=== PATIENT | male | born 1960 | race Caucasian/White ===

== ENCOUNTER 2019-01-05 19:47 | Observation (INO) | payer OTHER ==
[~2019-01-05] VITALS: Ht 182.9 cm; Wt 100.0 kg
[2019-01-05 20:20] LABS: BASOPHILS ABSOLUTE AUTO 0.05 K/mm3 (0.00-0.23); BASOPHILS PERCENT AUTO 1 % (0-2); EOSINOPHILS ABSOLUTE AUTO 0.03 K/mm3 (0.00-0.68); EOSINOPHILS PERCENT AUTO 0 % (0-6); Hematocrit 38.1 % (37.0-53.0); IMMATURE GRAN ABSOLUTE AUTO 0.04 K/mm3 (0.00-0.10); IMMATURE GRAN PERCENT AUTO 0 % (0-1); LYMPHOCYTES ABSOLUTE AUTO 0.91 K/mm3 (0.84-5.20); LYMPHOCYTES PERCENT AUTO 10 % (21-46); MONOCYTES ABSOLUTE AUTO 0.77 K/mm3 (0.16-1.47); MONOCYTES PERCENT AUTO 8 % (4-13); Mean Corpuscular HGB 34.7 pg (26.0-34.0); Mean Corpuscular HGB Conc 34.1 g/dL (31.5-36.5); Mean Corpuscular Volume 102 fL (80-100); Mean Platelet Volume 10.1 fL (9.1-12.4); NEUTROPHILS ABSOLUTE AUTO 7.71 K/mm3 (1.96-9.15); NEUTROPHILS PERCENT AUTO 81 % (41-73); Platelet Count 225 K/mm3 (150-400); RDW Coefficient Variation 12.3 % (11.7-14.2); RDW Standard Deviation 46.4 fL (35.1-46.3); Red Blood Cell Count 3.75 M/mm3 (4.30-5.90); White Blood Cell Count 9.51 K/mm3 (4.00-11.30)
[2019-01-05 21:19] LABS: Magnesium, Blood 1.6 mg/dL (1.6-2.4)
[2019-01-05 21:20] LABS: Alanine Aminotransfer (ALT/SGP 115 U/L (12-78); Albumin, Blood 4.3 g/dL (3.4-5.0); Albumin/Globulin Ratio 1.3 (0.8-1.8); Alk Phos 99 U/L (50-136); Anion Gap 9 mmol/L (6-16); Aspartate Aminotrans (AST/SGOT 115 U/L (12-37); Bilirubin, Total 0.8 mg/dL (0.1-1.0); Blood Urea Nitrogen 12 mg/dL (8-24); Bun/Creatinine Ratio 10.2 (12.0-20.0); CO2, Blood 25 mmol/L (21-32); Calcium, Blood 9.5 mg/dL (8.5-10.1); Chloride, Blood 103 mmol/L (98-108); Creatinine, Blood 1.18 mg/dL (0.60-1.20); Globulin, Blood 3.4 g/dL (2.2-4.0); Glomerular Filtration Rate >60 (60-); Glucose, Blood 134 mg/dL (70-99); Potassium, Blood 3.2 mmol/L (3.5-5.5); Sodium, Blood 137 mmol/L (136-145); Total Protein, Blood 7.7 g/dL (6.4-8.2)
[2019-01-05 22:37] LABS: Source, Urine Clean Catch
[2019-01-05 22:39] LABS: Bilirubin, Urine Neg (Neg); Blood, Urine 3+ (Neg); Glucose Qualitative, Urine Neg (Neg); Ketones, Urine 1+ (Neg); Leukocyte Esterase, Urine 1+ (Neg); Nitrite, Urine Neg (Neg); Protein, Urine 3+ (Neg); Urobilinogen, Urine 2+ (Normal)
[2019-01-05 22:45] LABS: Appearance, Urine Hazy (Clear); Color, Urine Yellow (P-Yellow)
[2019-01-05 22:46] LABS: Amorphous Mod (0-Heavy); Bacteria Few /hpf; Squamous Epithelial Cells Rare /hpf (Few); White Blood Cells, Urine 0-2 /hpf (0-5)
[2019-01-05 22:55] LABS: U Amphetamine Screen Not Detected; U Barbituate Screen Not Detected; U Benzodiazapine Screen Not Detected; U Buprenorphine Screen Not Detected; U Cannabinoids Screen Not Detected; U Cocaine Screen Not Detected; U Methadone Screen Not Detected; U Methamphetamine Screen Not Detected; U Opiates Screen Not Detected; U Oxycodone Screen Not Detected; U Phencyclidine Screen Not Detected; U Propoxyphene Screen Not Detected
[2019-01-06 05:36] LABS: Hematocrit 34.1 % (37.0-53.0); Hemoglobin 11.4 g/dL (13.5-17.5); Mean Corpuscular HGB 34.7 pg (26.0-34.0); Mean Corpuscular HGB Conc 33.4 g/dL (31.5-36.5); Mean Corpuscular Volume 104 fL (80-100); Platelet Count 184 K/mm3 (150-400); RDW Coefficient Variation 12.5 % (11.7-14.2); RDW Standard Deviation 47.7 fL (35.1-46.3); Red Blood Cell Count 3.29 M/mm3 (4.30-5.90); White Blood Cell Count 5.75 K/mm3 (4.00-11.30)
[2019-01-06 05:53] LABS: Alanine Aminotransfer (ALT/SGP 98 U/L (12-78); Albumin, Blood 3.5 g/dL (3.4-5.0); Albumin/Globulin Ratio 1.2 (0.8-1.8); Alk Phos 82 U/L (50-136); Anion Gap 7 mmol/L (6-16); Aspartate Aminotrans (AST/SGOT 94 U/L (12-37); Bilirubin, Total 1.1 mg/dL (0.1-1.0); Blood Urea Nitrogen 9 mg/dL (8-24); Bun/Creatinine Ratio 8.7 (12.0-20.0); CO2, Blood 27 mmol/L (21-32); Calcium, Blood 8.7 mg/dL (8.5-10.1); Chloride, Blood 108 mmol/L (98-108); Creatinine, Blood 1.04 mg/dL (0.60-1.20); Glomerular Filtration Rate >60 (60-); Glucose, Blood 90 mg/dL (70-99); Potassium, Blood 3.6 mmol/L (3.5-5.5); Sodium, Blood 142 mmol/L (136-145); Total Protein, Blood 6.5 g/dL (6.4-8.2)
--- NOTE | 2019-01-06 08:20 | NUR ---
ADMIT: ALERT AND ORIENTED. ABLE TO MOVE SELF TO BED WITH MINIMAL ASSISTANCE. ORIENTED TO PLAN OF CARE. WILL CONTINUE TO MONITOR.
[2019-01-06] MEDS ORDERED: IBUP400 PO (08:42)
--- NOTE | 2019-01-06 10:16 | NUR ---
TO MRI WITH TECH
--- NOTE | 2019-01-06 12:56 | NUR ---
SHIFT ASSESSMENT: PT TO ICU FROM ED FOR SEIZURES. PT A&O X 4. MRI AND EEG DONE. NSR, HEART RATE AND RHYTHM REGULAR. LUNG SOUNDS CLEAR BILAT. NO GI ISSUES. LAST BM YESTERDAY. PT CURRENTLY SITTING UPRIGHT EATING LUNCH AND HAS A VISITOR AT BEDSIDE.
--- NOTE | 2019-01-06 17:34 | NUR ---
SHIFT SUMMARY: PT FROM ED TO ICU ON PCU-OBS FOR SEIZURE ACTIVITY. NEURO INTACT. PT A&O X 4 AND UNDERSTANDS PLAN OF CARE. NO SEIZURE ACTIVITY THIS SHIFT PT NSR WITH [id number]. BP HAS BEEN STABLE. LUNG SOUNDS CLEAR THROUGHOUT. BOWEL TONES PRESENT. PT IS ABLE TO USE URINAL. PT IS ON A REGULAR DIET. MRI AND EEG DONE, AWAITING RESULTS. 18G IV IN R AC, SALINE LOCKED.
--- NOTE | 2019-01-06 20:00 | NUR ---
ASSUMED CARE OF PT AT 1915. REPORT RECEIVED AT BEDSIDE. PT PRESENTS IN BED. ALERT AND ORIENTED. PLEASANT AND COOPERATIVE WITH CARE AND ASSESSMENT. DENIES ALL COMPLAINTS AT THIS TIME EXCEPT FOR WHERE HE INJURED HIS TONGUE DURING SEIZURES. NO S/S INFECTION AT INJURED SITE. WILL REVIEW CHART AND PLAN OF CARE FOR THIS PT.
--- NOTE | 2019-01-06 23:52 | NUR ---
PT HAS BEEN UP IN ROOM INDEPENDENTLY THIS EVENING. HAS DENIED COMPLAINTS. NO SEIZURE ACTIVITY TO NOTE. WILL CONTINUE TO MONITOR. PT STATES THAT HE IS OPTOMISTIC THAT HE WILL BE ABLE TO GO HOME IN AM. TEACHING HAS BEEN DONE ON [place] FOR SEIZURE ACTIVITIES. PT VERBALIZES UNDERSTANDING.
--- NOTE | 2019-01-07 05:33 | NUR ---
PT HAS GONE THE THROUGH THE NIGHT WITHOUT S/S SEIZURE ACTIVITY. DENIES COMPLAINTS. REMAINS ALERT AND ORIENTED. HAS BEEN ABLE TO REST THIS NIGHT. WILL CONTINUE TO MONITOR PT, AND WILL REPORT OFF TO ONCOMING RN.
--- NOTE | 2019-01-07 07:18 | NUR ---
ASSUMED CARE REPORT FROM FANNY RAGSDALE. PATIENT ASLEEP. SEIZURE PADS IN PLACE ON BED
--- NOTE | 2019-01-07 08:11 | NUR ---
PATIENT DENIES PAIN EXCEPT FOR TONGUE THAT HE BIT WHILE HAVING SEIZURES
--- NOTE | 2019-01-07 09:58 | NUR ---
PATIENT WANTS TO GO HOME TODAY.
[2019-01-07] MEDS ORDERED: LEVE500 PO (10:55)
--- NOTE | 2019-01-07 11:28 | NUR ---
DISCHARGE RX FAXED TO [facility]. WAITING FOR DR. LEÓN TO SEE PATIENT TO DISCHARGE
--- NOTE | 2019-01-07 11:47 | NUR ---
PIV REMOVED WNL. PATIENT LEFT THE UNIT WITH FRIEND AT 1144. REFUSED WHEELCHAIR
== END 2019-01-07 11:44 | disposition home or self-care (01) ==
LOC: ER 19:47 → ERHOLD 19:48 → ICUW 01-06 08:03
PROVIDERS: Physician Assistant; ADMIT Internal Medicine
DX: G40.409 Other generalized epilepsy and epileptic syndromes, not intractable, without status epilepticus (principal); E86.0 Dehydration; E87.6 Hypokalemia; R74.0 Nonspecific elevation of levels of transaminase and lactic acid dehydrogenase [LDH]
CPT/HCPCS: 36415; 70450; 70551; 80053; 81001; 83735; 84484; 85025; 85027; 92950; 93005; 93010; 95819; 96361; 96365; 96366; 96368; 96375; 96376; 99285-25; G0378; J1650; J1953; J2060; J3475; J3480; J7030